=== PATIENT | female | born 1950 | race Two or more races ===

== ENCOUNTER 2024-11-23 19:16 | Emergency (ER) | payer SELFPAY ==
[2024-11-23 19:17] VITALS: BMI 40.4
--- NOTE | 2024-11-23 19:41 | PD.EDNEURO ---
Neuro Symptoms Deficit-RME/HPI General Chief Complaint: Neuro Symptoms/Deficit Stated Complaint: FACIAL DROOP X 5 DAYS Time Seen by Provider: 11/23/24 19:49 Arrival date/time: 11/23/24 19:16 RME / HPI RME / HPI Narrative: Dr. David?s Main ED Evaluation: 74yo female with a history of DM presents to the ED for a chief complaint of right facial droop x 5 days. Patient states she's had the same symptoms twice before, it's lasted up to 2-3 months. Patient states both of my feet are tired and has had dizziness for months . Patient denies any tingling, numbness, weakness or any other associated symptoms. Patient notes she fell and hit her head over 1 month ago, reporting she had a hematoma that was opened and drained in [place] . Related Data Previous Rx's ?Medication ?Instructions ?Recorded prednisone 50 mg tablet 50 mg PO QDAY Jacome's palsy 7 days 11/24/24 #7 tabs prednisone 50 mg tablet 50 mg PO QDAY Jacome's palsy 7 days 11/24/24 #7 tabs valacyclovir 1 gram tablet 1,000 mg PO TID Jacome's palsy 7 11/24/24 days #21 tabs valacyclovir 1 gram tablet 1,000 mg PO TID Jacome's palsy 7 11/24/24 days #21 tabs Allergies Allergy/AdvReac Type Severity Reaction Status Date / Time No Known Allergies Allergy Verified 11/23/24 22:17 Review of Systems Review of Systems Systems Reviewed: All systems reviewed, normal except as documented Past Medical History Social History SMOKING STATUS: Never smoker ED Exam Narrative Physical exam: GENERAL APPEARANCE: alert and oriented x 4, well-developed, well-nourished, no acute distress VITALS: All vitals were reviewed and the pulse ox is % on room air, which is normal according to my interpretation. HEENT: Normocephalic, atraumatic; pupils equal, round, reactive to light; EOMI; no nystagmus; mucous membranes pink, moist; oropharynx clear NECK: Supple LUNGS: CTABL; no wheezes, no rales, no rhonchi HEART: Regular rate, regular rhythm; normal S1, S2; no murmurs ABDOMEN: non distended; normal BS; soft, no tenderness, no guarding, no rebound; no masses, no organomegaly, no hernia BACK: no CVA tenderness EXTREMITIES: atraumatic; no edema NEUROLOGIC: awake; alert and oriented x4; severe right facial droop with forehead involvement; no intention tremor, steccato speech, dysmetria or dysdiadochokinesia PSYCHIATRIC: appropriate mood and affect SKIN: warm, dry, normal color; no rashes Course Quality Measures none Orders Category Date Time Status Bedside Blood Glucose NOW Care 11/23/24 19:[address] Screening NOW Care 11/23/24 20:25 Completed Ehs Manager NOW Care 11/23/24 19:49 Completed Continuous Pulse Oximetry NOW Care 11/23/24 19:49 Completed EKG (ED ONLY) *Do not use* NOW Care 11/23/24 19:49 Completed In and Out Catheter NEEDED Care 11/23/24 19:49 Completed Insert IV NOW Care 11/23/24 19:49 Completed NIH Stroke Scale now Care 11/23/24 19:49 Completed NPO NOW Care 11/23/24 19:49 Completed Nurse Swallow Screen x1 Care 11/23/24 19:49 Completed Consult to Neurology / Tele-Neurology Routine Cons 11/23/24 19:[address] angio carotid w head w Stat Exams 11/23/24 20:[address] stroke protocol Stat Exams 11/23/24 19:49 Completed EKG (ED Only) Stat Exams 11/23/24 19:49 Draft CBC Stat Lab 11/23/24 20:29 Completed Comprehensive Metabolic Panel Stat Lab 11/23/24 20:29 Completed Magnesium Stat Lab 11/23/24 20:29 Completed Partial Thromboplastin Time Stat Lab 11/23/24 20:29 Completed Prothrombin Time with INR Stat Lab 11/23/24 20:29 Completed Troponin I Stat Lab 11/23/24 20:29 Completed Vital Signs Vital signs: Vital Signs Temperature 97.7 F 11/23/24 20:23 Pulse Rate 71 11/23/24 20:23 Respiratory Rate 20 11/23/24 20:23 Blood Pressure 154/70 H 11/23/24 20:23 Pulse Oximetry (%) 97 11/23/24 20:23 Oxygen Delivery Method Room Air 11/23/24 20:23 Neuro Symptoms / Deficit MDM Narrative MDM Narrative:: Scribe Attestation: 11/23/24 Asia Devi am scribing for and in the presence of Dr. David. 0005: Discussed case with [Dr. Guzman] from teleneurology regarding consultation. Discussed patients ED course, exam findings, labs, and radiology results. States that since the patient has had similar symptoms in the past (despite the patient's last episode being years ago), she recommends the patient to get a MRI with and without contrast in the morning. However, patient does not want to wait until the morning for a MRI. Risk versus benefits were discussed with the patient regarding her leaving. Patient is signing out against medical advice. Patient data External records reviewed:: [facility] previous records (Per chart review, patient has no previous ED visits or admissions to this facility.) Clinical information provided by:: patient Social determinants that could affect healthcare access:: none Patient has the following chronic illnesses:: DM How is presenting disease/condition affected by chronic disease/condition?: uneffected by Evaluation data The following diagnostics were reviewed and interpreted by me:: lab results, radiology exam(s) and EKG tracing(s) Lab and/or radiology exams considered but not ordered:: none Interpretation Summary: WBC count is elevated at 12.5, PT and INR are normal, PTT is normal, Glucose is 150, Troponin is normal, according to my interpretation. EKG done at 2020, NSR, rate of 69, normal axis, no ectopy, no acute ischemia, according to my interpretation. ----- [facility] Report Signed Patient: VICKIE CAIN Record#: [id number] Birthdate: 1950 Age/Sex: 74 / F Location: [facility] Attending Dr: Ordering Physician: Arnie David MD Date of Service: 11/23/24 Procedure(s): CT stroke protocol Accession Number(s): [id number] cc: Gianni Hoyos MD; Arnie David MD~ Examination: CT brain head without contrast. 2-D sagittal coronal reconstructions Date and time of exam:November 23, 2024 at 2041 hrs. Indications: Stroke alert, onset facial droop beginning 5 days ago CTDI: vol (mGy):52.3 DLP: (mGycm):1013 Technique: Multiple CT axial sections of the brain have been obtained, 5 mm slice thickness. Contrast has not been administered. 2-D sagittal, coronal reconstructions have been obtained Low dose protocols were performed. One or more of the following dose reduction techniques were used; automated exposure control, adjustment of the mA and/or KV according to patient size, use of iterative reconstruction technique. Findings: No significant ventricular enlargement. Intra-axial or extra-axial hemorrhage density is not seen. No mass effect or midline shift Basal cisterns are not remarkable. Fourth ventricle is midline. Cranial vault intact. Impression: Negative for acute hemorrhage, mass effect or midline shift Dictated By: Gianni Hoyos MD Signed By: <Electronically signed by Gianni Hoyos MD in OV> [facility] Report Signed Patient: VICKIE CAIN. Record#: [id number] Birthdate: 1950 Age/Sex: 74 / F Location: [facility] Attending Dr: Ordering Physician: Arnie David MD Date of Service: 11/23/24 Procedure(s): CT angio carotid w head w Accession Number(s): [id number] cc: Gianni Hoyos MD; Arnie David MD~ Examination: CTA carotids with intravenous contrast CTA brain, head with intravenous contrast. 2-D sagittal, coronal reconstructions. 3-D reconstructions. Exam date and time: November 23, 2024, 2046 hrs. Indications: Stroke alert, onset right-sided facial droop, vertigo beginning 5 days ago CTDI: vol (mGy) 11.2 DLP: (mGycm) 405 Technique: Multiple CTA axial brain, head carotid images post intravenous contrast injection 75 cc, Isovue-370. 2-D sagittal, coronal reconstructions. 3-D reconstructions, 3-D post processing including vascular maximum intensity projection images. Low dose protocols were performed. One or more of the following dose reduction techniques were used; automated exposure control, adjustment of the mA and/or KV according to patient size, use of iterative reconstruction technique. Findings: No significant common carotid carotid bifurcation or internal carotid artery stenoses Mildly dominant right vertebral artery no critical stenoses Intracranial vertebral arteries basilar artery posterior cerebral branches fill with no occlusions Petrous juxtasellar supraclinoid portions internal carotid arteries, M1 segments middle cerebral arteries and middle cerebral artery trifurcation vessels fill with no occlusions as well as anterior cerebral arteries Impression: No significant neck arterial stenoses No cerebral large vessel arterial occlusions or thrombus Dictated By: Gianni Hoyos MD Signed By: <Electronically signed by Gianni Hoyos MD in OV> 11/23/24 3915 Medications / Prescriptions Medications or Prescriptions considered but not ordered:: none Medication administrations:: see above, if any Consultations Consultation(s) initiated? (list below): Yes Diagnosis Neuro Differential Diagnosis: other (Jacome's palsy, ischemic stroke, hemorrhagic stroke) Most likely diagnosis given after review of the tests above:: see clinical impression below Admission Indicated Admission indicated?: not indicated Admission Request Was there a request for admission?: No Disposition Plan Disposition Plan: Discharge Discharge Attestation Discharge Attestation: The patient and all family members were given an opportunity to ask questions and understood the discharge instructions. Discharge instructions specifically effects, indications for sooner follow up or return to the emergency department, and the expected course of current diagnosis. Patient condition: Stable Discharge Plan Plan Patient Disposition: Left Against Medical Advice Disposition Comment: Patient is leaving AMA Prescriptions/Referrals Prescriptions/Med Rec: New prednisone 50 mg tablet 50 mg PO QDAY 7 Days Qty: 7 0RF valacyclovir 1 gram tablet 1,000 mg PO TID 7 Days Qty: 21 0RF prednisone 50 mg tablet 50 mg PO QDAY 7 Days Qty: 7 0RF valacyclovir 1 gram tablet 1,000 mg PO TID 7 Days Qty: 21 0RF Referrals: Tiago oGrdon MD [Physician] - In 1 week Problem List Clinical Impression: Jacome's palsy Patient/Caregiver Discharge Instructions Discharge Activity: activity as tolerated Education Materials: ED Jacome's Palsy Additional Instructions: Please return to the emergency department for any worsening or any further medical problems. Otherwise you should follow-up with your primary care doctor within the next several days. We have given you the name and contact information for Dr Gordon, our neurologist on-call. Please give his office a call and make an appointment for follow-up. Print Language: Telugu
--- NOTE | 2024-11-23 19:49 | EKG_ITS ---
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
--- NOTE | 2024-11-23 19:49 | XR_ITS ---
Examination: CT brain head without contrast. 2-D sagittal coronal reconstructions Date and time of exam:November 23, 2024 at 2041 hrs. Indications: Stroke alert, onset facial droop beginning 5 days ago CTDI: vol (mGy):52.3 DLP: (mGycm):1013 Technique: Multiple CT axial sections of the brain have been obtained, 5 mm slice thickness. Contrast has not been administered. 2-D sagittal, coronal reconstructions have been obtained Low dose protocols were performed. One or more of the following dose reduction techniques were used; automated exposure control, adjustment of the mA and/or KV according to patient size, use of iterative reconstruction technique. Findings: No significant ventricular enlargement. Intra-axial or extra-axial hemorrhage density is not seen. No mass effect or midline shift Basal cisterns are not remarkable. Fourth ventricle is midline. Cranial vault intact. Impression: Negative for acute hemorrhage, mass effect or midline shift
[2024-11-23 20:23] VITALS: BP 154/70; PULSE 71; RESP 20; TEMP 36.5; O2SAT 97
--- NOTE | 2024-11-23 20:25 | XR_ITS ---
Examination: CTA carotids with intravenous contrast CTA brain, head with intravenous contrast. 2-D sagittal, coronal reconstructions. 3-D reconstructions. Exam date and time: November 23, 2024, 2046 hrs. Indications: Stroke alert, onset right-sided facial droop, vertigo beginning 5 days ago CTDI: vol (mGy) 11.2 DLP: (mGycm) 405 Technique: Multiple CTA axial brain, head carotid images post intravenous contrast injection 75 cc, Isovue-370. 2-D sagittal, coronal reconstructions. 3-D reconstructions, 3-D post processing including vascular maximum intensity projection images. Low dose protocols were performed. One or more of the following dose reduction techniques were used; automated exposure control, adjustment of the mA and/or KV according to patient size, use of iterative reconstruction technique. Findings: No significant common carotid carotid bifurcation or internal carotid artery stenoses Mildly dominant right vertebral artery no critical stenoses Intracranial vertebral arteries basilar artery posterior cerebral branches fill with no occlusions Petrous juxtasellar supraclinoid portions internal carotid arteries, M1 segments middle cerebral arteries and middle cerebral artery trifurcation vessels fill with no occlusions as well as anterior cerebral arteries Impression: No significant neck arterial stenoses No cerebral large vessel arterial occlusions or thrombus
[2024-11-23 20:55] LABS: Basophils # (Auto) 0.1 Thou/mm3 (0.0-0.2); Basophils % (Auto) 1 % (0-2.5); Eosinophils # (Auto) 0.2 Thou/mm3 (0.0-0.5); Eosinophils % (Auto) 1 % (0-10); Hematocrit 39.8 % (36.0-46.0); Hemoglobin 12.9 g/dL (12.0-16.0); Immature Granulocytes % (Auto) 1 % (0-0); Immature Granulocytes Auto 0.13 Thou/mm3 (0.00-0.00); Lymphocytes # (Auto) 4.3 Thou/mm3 (1.0-4.8); Lymphocytes % (Auto) 34 % (10-50); Mean Corpuscular HGB Conc 32.4 g/dl (31.0-37.0); Mean Corpuscular Hemoglobin 30.6 pg (25.0-35.0); Mean Corpuscular Volume 94 fL (80-100); Monocytes # (Auto) 0.7 Thou/mm3 (0.0-0.8); Monocytes % (Auto) 5 % (0-12); Neutrophils # (Auto) 7.2 Thou/mm3 (1.8-7.7); Neutrophils % (Auto) 58 % (37-80); Nucleated Red Blood Cell % 0 /100 WBC (0); Platelet Count 165 Thou/mm3 (140-440); RDW Standard Deviation 50.1 fL (36.4-46.3); Red Blood Count 4.22 Miln/mm3 (4.00-5.20); White Blood Count 12.5 Thou/mm3 (3.6-11.0)
[2024-11-23 21:12] LABS: Partial Thromboplastin Time 25.4 Seconds (22.0-36.0); Prothrombin Time 10.5 Seconds (9.0-12.2)
[2024-11-23 21:25] LABS: Alanine Aminotransferase 26 U/L (10-49); Albumin, Serum 4.1 gm/dL (3.4-4.8); Albumin/Globulin Ratio 1.6 (1.2-2.2); Alkaline Phosphatase 75 U/L (46-116); Anion Gap 7 (7-16); Aspartate Amino Transferase 36 U/L (0-34); BUN/Creatinine Ratio 18 Ratio (12-20); Bilirubin,Total 0.3 mg/dL (0.3-1.2); Blood Urea Nitrogen 16 mg/dL (9-23); Carbon Dioxide 26.8 mMol/L (20.0-31.0); Chloride 111 mMol/L (98-107); Creatinine (Component) 0.9 mg/dL (0.6-1.3); Estimated Creatinine Clearance 54.7 mL/min (>60); Globulin 2.6 gm/dL (2.3-3.5); Glucose 150 mg/dL (74-106); Magnesium 2.1 mg/dL (1.6-2.6); Osmolality,Calculated 292 (275-295); Sodium 145 mMol/L (136-145); Total Protein 6.7 gm/dL (5.7-8.2); Troponin I < 0.020 ng/mL (0.0-0.045); eGFR > 60 See Note
[2024-11-23 21:59] VITALS: BP 166/76; PULSE 62; RESP 18; O2SAT 95
--- NOTE | 2024-11-23 21:59 | PC.NURSE ---
stroke consult Case # [id number]?
--- NOTE | 2024-11-23 22:07 | PC.NURSE ---
PT RECEIVED FROM RP, PT AMBULATED TO ROOM 15, NO C/O PAIN. C/O LEFT FACIAL NUMBNESS X 5 DAYS.
--- NOTE | 2024-11-24 00:12 | PD.TNEURO ---
Tele Neuro Consultation Consultation Date 11/24/24 Most Recent Vital Signs Last Vital Signs Temp 97.7 F 11/23/24 20:23 Pulse 62 11/23/24 21:59 Resp 18 11/23/24 21:59 BP 166/76 H 11/23/24 21:59 Pulse Ox 95 11/23/24 21:59 O2 Del Method Room Air 11/23/24 21:59 Laboratory-Coagulation Panel PT 10.5 Seconds (9.0-12.2) 11/23/24 20:29 INR 1.0 (0.9-1.3) 11/23/24 20:29 APTT 25.4 Seconds (22.0-36.0) 11/23/24 20:29 Consultation Narrative [facility] TeleNeurology Consult Services Stat Consult Patient Name:???Inez Resendiz Date of :???1950 Identification Number:??? 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 CT head neg for acute finding, CTA head/neck neg for significant stenosis. On exam patient has unilateral right facial droop. Current exam is suggestive of right sided Jacome's palsy. However given patient's history of two previous Jacome's palsy that affected left and right side, would recommend MR brain w/wo to rule out other [employer] ANALYSIS etiology. Patient had expressed she cannot stay for the exam and will likely leave AMA. Discussed with patient that leaving AMA will likely leads to delay in getting MRI and it is unusual for her to have multiple episode of facial nerve issue involving both side. Patient voiced understanding and said she needs to go home due to life situation. If patient signed AMA, recommendation as follows Recommendation: - Prednisone 60mg daily for one week. Take in the morning. Take with medication for GERD (i.e. proton pump inhibitor for GI protection). And if feeling fatigue or confused, check glucose. - Eye care reviewed with patient - Obtain MR brain w/wo as soon as possible - Precaution for if symptom worsen to return for repeat evaluation. Waking hours ? Apply artificial tears (liquid or gel) four times daily and up to hourly if needed and eye protection (eg, glasses or goggles) to protect from trauma. During sleep ? Apply artificial tears ointment and tape the eyelid shut. Advise not using an eye patch without taping as this leaves the cornea exposed. If developed symptoms involving other area of body, recommend immediately return to hospital for repeat evaluation. Recommendations: Our recommendations are outlined below. Diagnostic Studies :MRI brain w/wo contrast Medications :consider artificial tears for daytime and eye ointment or patch for bedtime Consultations :Will need outpatient follow up with Neurology and PCP in 1-2 weeks Metrics: Dispatch Time: 11/23/2024 21:58:43 Callback Response Time: 11/23/2024 21:59:21 Primary Provider Notified of Diagnostic Impression and Management Plan on: 11/24/2024 00:06:28 ImagingCTA head/neck No significant neck arterial stenoses. No cerebral large vessel arterial occlusion or thrombus. Chief Complaint: left face droop History of Present Illness:Patient is a 74 year old Female. Patient initially said she came in due to crookedness to the left side of face and left face numbness. Then later she clarified she came in due to RIGHT sided numbness and weakness. Her symptom started 6 days ago and she couldn't get transportation to hospital until today. She reports water dripping from corner of mouth and food taste different. Denies involvement at extremities, change in speech, or change in gait. 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 These occurred in [place]. Denies ever getting MR brain before. She had residual drooping on both side of face. She reports feeling heaviness in both legs for the past 4 months. Did not affect her ambulation. She was told she needs to take aspirin for HTN but she forgets to take it daily. Past Medical History: ?Hypertension ?Hyperlipidemia Other PMH:? PreDM Medications: No Anticoagulant use? No Antiplatelet use Reviewed EMR for current medications Allergies:? Reviewed,NKDA Social History: Smoking: No Alcohol Use: No Family History: There is no family history of premature cerebrovascular disease pertinent to this consultation ROS : 14 Points Review of Systems was performed and was negative except mentioned in HPI. Past Surgical History: There Is No Surgical History Contributory To Today?s Visit Examination: BP(166/76),?Pulse(62), 1A: Level of Consciousness - Alert; keenly responsive?+ 0 1B: Ask Month and Age - Both Questions Right?+ 0 1C: Blink Eyes & Squeeze Hands - Performs Both Tasks?+ 0 2: Test Horizontal Extraocular Movements - Normal?+ 0 3: Test Visual Cyr - No Visual Loss?+ 0 4: Test Facial Palsy (Use Grimace if Obtunded) - Unilateral Complete paralysis (upper/lower face)?+ 3 5A: Test Left Arm Motor Drift - No Drift for 10 Seconds?+ 0 5B: Test Right Arm Motor Drift - No Drift for 10 Seconds?+ 0 6A: Test Left Leg Motor Drift - No Drift for 5 Seconds?+ 0 6B: Test Right Leg Motor Drift - No Drift for 5 Seconds?+ 0 7: Test Limb Ataxia (FNF/Heel-Rockwell) - No Ataxia?+ 0 8: Test Sensation - Normal; No sensory loss?+ 0 9: Test Language/Aphasia - Normal; No aphasia?+ 0 10: Test Dysarthria - Normal?+ 0 11: Test Extinction/Inattention - No abnormality?+ 0 NIHSS Score:?3 Spoke with :?Dr. David This consult was conducted in real time using interactive audio and video technology. Patient was informed of the technology being used for this visit and agreed to proceed. Patient located in hospital and provider located at home/office setting. Patient is being evaluated for possible acute neurologic impairment and high probability of imminent or life - threatening deterioration.I spent total of 41 minutes providing care to this patient, including time for face to face visit via telemedicine, review of medical records, imaging studies and discussion of findings with providers, the patient and / or family. Dr Debbie Guzman [facility] For Inpatient follow-up with [facility] physician please call [facility] at . As we are not an outpatient service for any post hospital discharge needs please contact the hospital for assistance. If you have any questions for the [facility] physicians or need to reconsult for clinical or diagnostic changes please contact us via [facility] at .
[2024-11-24 00:30] VITALS: RESP 16
== END 2024-11-24 00:31 | disposition left against medical advice (07) ==
PROVIDERS: Emergency Provider Emergency Medicine
DX: G51.0 Bell's palsy (principal); Z53.29 Procedure and treatment not carried out because of patient's decision for other reasons; E11.9 Type 2 diabetes mellitus without complications
CPT/HCPCS: 36415; 70450; 70496; 70498; 80053; 83735; 84484; 85025; 85610; 85730; 93005; 99285; A4649; Q9967